=== PATIENT | female | born 1985 | race Caucasian/White ===

== ENCOUNTER 2017-08-06 05:05 | Emergency (ER) | payer OTHER ==
[2017-08-06] MEDS: LIDOCAINE 1% (MDV) 10 ML INJ INJ (06:32)
== END 2017-08-06 07:31 | disposition home or self-care (01) ==
LOC: FTE 05:05
DX: S01.111A Laceration without foreign body of right eyelid and periocular area, initial encounter (principal); V49.40XA Driver injured in collision with unspecified motor vehicles in traffic accident, initial encounter
CPT/HCPCS: 12011; 99283-25